=== PATIENT | male | born 1955 | race African-American/Black ===

== ENCOUNTER 2025-01-29 20:30 | Inpatient (IN) | payer MEDICARE, MEDICAID ==
[~2025-01-29] VITALS: Ht 167.6 cm; Wt 124.3 kg
[2025-01-29 20:30] VITALS: BP 146/75; PULSE 90; RESP 20; TEMP 36.6404
[2025-01-29 21:22] VITALS: BP 146/75; PULSE 90; RESP 20; TEMP 36.6; O2SAT 97
[2025-01-29] MEDS ORDERED: IPRATROPIUM/ALBUTEROL 0.5-3(2.5)MG/3ML NEB HHN PRN (22:00)
[2025-01-29] MEDS ORDERED: ACETAMINOPHEN 325MG TABLET PO PRN (22:00)
[2025-01-29] MEDS ORDERED: DEXTROSE 50% WATER 50ML SYRINGE IV PRN (22:00)
[2025-01-29] MEDS ORDERED: ONDANSETRON HCL 4MG/2ML INJ IV PRN (22:00)
[2025-01-29] MEDS: ATORVASTATIN CALCIUM 40MG TABLET PO SCH (22:23)
[2025-01-30] MEDS: BLOOD SUGAR DIAGNOSTIC STRIP TEST SCH (07:15)
[2025-01-30 08:00] VITALS: BP 141/68; PULSE 88; RESP 20; TEMP 36.5; O2SAT 98
[2025-01-30 08:49] LABS: BASOPHILS % 0.8 % (0.0-2.0); EOSINOPHILS % 0.6 % (0.0-5.0); HEMATOCRIT. 32.6 % (42.0-52.0); HEMOGLOBIN. 10.8 g/dL (14.0-18.0); LYMPHOCYTES % 11.9 % (20.0-50.0); MEAN PLATELET VOLUME 9.1 fl (7.4-10.4); MONOCYTES % 12.9 % (2.0-8.0); NEUTROPHILS % 73.8 % (40.0-76.0); PLATELET 225 x1000/uL (130-400); RED BLOOD CELL COUNT 3.40 mill/uL (4.7-6.1); RED CELL DISTRIBUTION WIDTH 15.1 % (11.6-14.6)
[2025-01-30] MEDS: INSULIN LISPRO 100 UNITS/ML SUBCUT SCH (09:00)
[2025-01-30] MEDS: FUROSEMIDE 40MG/4ML VIAL IVP SCH (09:22)
[2025-01-30 09:45] LABS: CREATININE 1.1 mg/dL (0.6-1.3)
[2025-01-30 09:46] LABS: UREA NITROGEN BLOOD 18 mg/dL (9-23)
[2025-01-30 09:47] LABS: ASPARTATE AMINOTRANSFERASE 15 IU/L (<34)
[2025-01-30 09:48] LABS: BILIRUBIN TOTAL 1.2 mg/dL (0.1-1.0); PROTEIN TOTAL 6.4 g/dL (6.0-8.3)
[2025-01-30] MEDS: ASPIRIN 81MG TABLET PO SCH (09:53)
[2025-01-30] MEDS: EMPAGLIFLOZIN 10MG TABLET PO SCH (09:53)
[2025-01-30] MEDS: SACUBITRIL/VALSARTAN 24MG/26MG TABLET PO SCH (09:53)
[2025-01-30] MEDS: SPIRONOLACTONE 25MG TABLET PO SCH (10:06)
[2025-01-30] MEDS: CLOPIDOGREL 75MG TABLET PO SCH (10:08)
[2025-01-30 20:00] VITALS: BP 111/75; PULSE 103; RESP 19; TEMP 36.3; O2SAT 95
[2025-01-31 06:03] LABS: HEMATOCRIT. 34.7 % (42.0-52.0); HEMOGLOBIN. 11.2 g/dL (14.0-18.0); MEAN PLATELET VOLUME 9.0 fl (7.4-10.4); PLATELET 222 x1000/uL (130-400); RED BLOOD CELL COUNT 3.60 mill/uL (4.7-6.1); RED CELL DISTRIBUTION WIDTH 15.5 % (11.6-14.6)
[2025-01-31 06:18] LABS: CREATININE 1.1 mg/dL (0.6-1.3); UREA NITROGEN BLOOD 11 mg/dL (9-23)
[2025-01-31 06:20] LABS: ASPARTATE AMINOTRANSFERASE 17 IU/L (<34); BILIRUBIN TOTAL 1.3 mg/dL (0.1-1.0); PROTEIN TOTAL 7.3 g/dL (6.0-8.3)
[2025-01-31 08:00] VITALS: BP 119/79; PULSE 102; RESP 21; TEMP 37.7; O2SAT 98
[2025-01-31 11:26] LABS: FOLIC ACID (FOLATE) SERUM > 20.00 ng/mL (>5.38)
[2025-01-31 11:27] LABS: VITAMIN B12 SERUM 374 pg/mL (211-911)
[2025-01-31] MEDS: ASCORBIC ACID 500 MG TABLET PO SCH (16:19)
[2025-01-31] MEDS: FERROUS SULFATE 325MG TABLET PO SCH (16:19)
[2025-01-31] MEDS: CYANOCOBALAMIN 1000MCG/ML VIAL IM SCH (16:19)
[2025-01-31 17:14] LABS: LYMPHOCYTES % MANUAL 8.0 % (20.0-50.0); MONOCYTES % MANUAL 14.0 % (2.0-8.0); NEUTROPHILS % MANUAL 78.0 % (45.0-75.0); PLATELET ESTIMATE NORMAL
[2025-01-31 17:39] LABS: CLARITY URINE CLEAR (CLEAR); COLOR URINE YELLOW (YELLOW); GLUCOSE URINE 3+ (NEGATIVE); KETONES URINE NEGATIVE (NEGATIVE); LEUKOCYTE ESTERASE URINE NEGATIVE (NEGATIVE); NITRITE URINE NEGATIVE (NEGATIVE); OCCULT BLOOD URINE NEGATIVE (NEGATIVE); PH URINE 6.0 (4.5-8.0); PROTEIN URINE TRACE (NEGATIVE); SPECIFIC GRAVITY URINE 1.026 (1.005-1.030); UROBILINOGEN URINE 4.0 E.U./dL (0.2-1.0)
[2025-01-31 18:11] LABS: BACTERIA URINE NONE SEEN; RBC URINE NONE SEEN /hpf (0-2); SQUAMOUS EPITHELIAL CELL URINE NONE SEEN /lpf (RARE/1+); WBC URINE NONE SEEN /hpf (0-2); YEAST URINE NONE SEEN
[2025-01-31] MEDS: ACETAMINOPHEN 325MG TABLET PO PRN (18:35)
[2025-01-31 20:00] VITALS: BP 122/78; PULSE 89; RESP 14; TEMP 36.8; O2SAT 95
[2025-01-31] MEDS: TRAMADOL 50MG TABLET PO PRN (21:38)
[2025-02-01] VITALS: BP 129/79; PULSE 89; RESP 14; TEMP 36.9; O2SAT 97
[2025-02-01 08:00] VITALS: BP 95/53; PULSE 96; RESP 17; TEMP 37.9; O2SAT 96
[2025-02-01 12:23] LABS: CLARITY URINE CLEAR (CLEAR); COLOR URINE DARK YELLOW (YELLOW); GLUCOSE URINE 3+ (NEGATIVE); KETONES URINE TRACE (NEGATIVE); LEUKOCYTE ESTERASE URINE NEGATIVE (NEGATIVE); NITRITE URINE NEGATIVE (NEGATIVE); OCCULT BLOOD URINE 1+ (NEGATIVE); PH URINE 5.0 (4.5-8.0); PROTEIN URINE 1+ (NEGATIVE); SPECIFIC GRAVITY URINE 1.034 (1.005-1.030); UROBILINOGEN URINE 1.0 E.U./dL (0.2-1.0)
[2025-02-01 12:34] LABS: BACTERIA URINE TRACE; SQUAMOUS EPITHELIAL CELL URINE RARE /lpf (RARE/1+); WBC URINE 0-2 /hpf (0-2); WHITE BLOOD CELL CASTS URINE 0-5 /lpf
[2025-02-01] MEDS: SODIUM CHLORIDE 0.9% 1,000 ML IV SCH (12:40)
[2025-02-01] MEDS: NA PHOS,M-B/NA PHOS,DI-BA ENEMA 118ML PR SCH (13:00)
[2025-02-01 13:04] LABS: C REACTIVE PROTEIN HIGH SENS 206.04 mg/l (<1.00)
[2025-02-01 14:52] LABS: HEMATOCRIT. 33.6 % (42.0-52.0); HEMOGLOBIN. 10.8 g/dL (14.0-18.0); MEAN PLATELET VOLUME 9.1 fl (7.4-10.4); PLATELET 262 x1000/uL (130-400); RED BLOOD CELL COUNT 3.54 mill/uL (4.7-6.1); RED CELL DISTRIBUTION WIDTH 15.0 % (11.6-14.6)
[2025-02-01] MEDS: LACTULOSE 20G/30ML UDC PO SCH (15:18)
[2025-02-01 16:12] LABS: EOSINOPHILS % MANUAL 1.0 % (0.0-5.0); LYMPHOCYTES % MANUAL 11.0 % (20.0-50.0); MONOCYTES % MANUAL 16.0 % (2.0-8.0); NEUTROPHILS % MANUAL 72.0 % (45.0-75.0); PLATELET ESTIMATE NORMAL
[2025-02-01] MEDS: CEFEPIME 1GM/50ML 50 ML IV SCH (18:36)
[2025-02-01] MEDS: VANCOMYCIN 2GM PMX (XELLIA) 400 ML IV NR (19:04)
[2025-02-01 20:00] VITALS: BP 102/63; PULSE 97; RESP 18; TEMP 36.3; O2SAT 96
[2025-02-02 08:00] VITALS: BP 106/56; PULSE 93; RESP 18; TEMP 36.1; O2SAT 97
[2025-02-02] MEDS ORDERED: NA PHOS,M-B/NA PHOS,DI-BA ENEMA 118ML PR PRN (09:00)
[2025-02-02] MEDS: CHOLECALCIFEROL (D3) 1000 UNIT TABLET PO SCH (13:37)
[2025-02-02 13:54] LABS: HEMATOCRIT. 35.4 % (42.0-52.0); HEMOGLOBIN. 11.5 g/dL (14.0-18.0); MEAN PLATELET VOLUME 8.3 fl (7.4-10.4); PLATELET 337 x1000/uL (130-400); RED BLOOD CELL COUNT 3.75 mill/uL (4.7-6.1); RED CELL DISTRIBUTION WIDTH 15.7 % (11.6-14.6)
[2025-02-02 13:55] LABS: CREATININE 1.2 mg/dL (0.6-1.3); UREA NITROGEN BLOOD 21 mg/dL (9-23)
[2025-02-02 13:56] LABS: LACTATE DEHYDROGENASE 170 IU/L (120-246)
[2025-02-02] MEDS: CEFEPIME 2GM/100ML 100 ML IV SCH (14:00)
[2025-02-02] MEDS ORDERED: METHYLPREDNISOLONE ACETATE 40MG/ML VIAL IM SCH (14:00)
[2025-02-02] MEDS ORDERED: LIDOCAINE HCL/EPINEPHRINE 1%-EPI 1:100,000 10ML VIAL INFIL SCH (15:00)
[2025-02-02] MEDS: VANCOMYCIN 750MG PREMIX 150 ML IV SCH (15:10)
[2025-02-02 20:00] VITALS: BP 112/71; PULSE 93; RESP 20; TEMP 36.4; O2SAT 97
[2025-02-02 21:02] LABS: LYMPHOCYTES % MANUAL 8.0 % (20.0-50.0); MONOCYTES % MANUAL 15.0 % (2.0-8.0); NEUTROPHILS % MANUAL 77.0 % (45.0-75.0); PLATELET ESTIMATE NORMAL
[2025-02-02] MEDS: PREGABALIN 75MG CAPSULE PO SCH (21:14)
[2025-02-02] MEDS: BUPROPION HCL 75MG TABLET PO SCH (21:14)
[2025-02-02] MEDS: HYDROXYCHLOROQUINE SULFATE 200MG TABLET PO SCH (21:14)
[2025-02-02] MEDS: PREDNISONE 20MG TABLET PO SCH (21:14)
[2025-02-02] MEDS: DICLOFENAC SODIUM 75MG DR TABLET PO SCH (21:14)
[2025-02-03 08:00] VITALS: BP 102/60; PULSE 83; RESP 19; TEMP 36.3; O2SAT 98
[2025-02-03 08:06] LABS: HEMATOCRIT. 36.4 % (42.0-52.0); HEMOGLOBIN. 12.0 g/dL (14.0-18.0); MEAN PLATELET VOLUME 8.3 fl (7.4-10.4); PLATELET 384 x1000/uL (130-400); RED BLOOD CELL COUNT 3.85 mill/uL (4.7-6.1); RED CELL DISTRIBUTION WIDTH 15.5 % (11.6-14.6)
[2025-02-03 08:23] LABS: CREATININE 1.3 mg/dL (0.6-1.3); UREA NITROGEN BLOOD 27 mg/dL (9-23)
[2025-02-03 09:48] LABS: ERYTHROCYTE SEDIMENTATION RATE 91 mm/hr (0-20)
[2025-02-03 16:40] LABS: LYMPHOCYTES % MANUAL 3.0 % (20.0-50.0); MONOCYTES % MANUAL 4.0 % (2.0-8.0); NEUTROPHILS % MANUAL 93.0 % (45.0-75.0)
[2025-02-03 16:41] LABS: PLATELET ESTIMATE NORMAL
[2025-02-03 20:00] VITALS: BP 101/55; PULSE 78; RESP 18; TEMP 36.4; O2SAT 96
[2025-02-03] MEDS: ATORVASTATIN CALCIUM 40MG TABLET PO SCH (21:35)
[2025-02-04 08:00] VITALS: BP 97/62; PULSE 87; RESP 18; TEMP 36.5; O2SAT 95
[2025-02-04 10:34] LABS: HEMATOCRIT. 35.1 % (42.0-52.0); HEMOGLOBIN. 11.6 g/dL (14.0-18.0); MEAN PLATELET VOLUME 8.3 fl (7.4-10.4); PLATELET 420 x1000/uL (130-400); RED BLOOD CELL COUNT 3.76 mill/uL (4.7-6.1); RED CELL DISTRIBUTION WIDTH 15.6 % (11.6-14.6)
[2025-02-04 10:47] LABS: UREA NITROGEN BLOOD 53.0 mg/dL (9-23)
[2025-02-04 10:53] LABS: CREATININE 1.8 mg/dL (0.6-1.3)
[2025-02-04 10:57] LABS: EOSINOPHILS % MANUAL 1.0 % (0.0-5.0); LYMPHOCYTES % MANUAL 2.0 % (20.0-50.0); MONOCYTES % MANUAL 8.0 % (2.0-8.0); NEUTROPHILS % MANUAL 89.0 % (45.0-75.0); PLATELET ESTIMATE INCREASED
[2025-02-04 20:00] VITALS: BP 104/60; PULSE 91; RESP 18; TEMP 36.3; O2SAT 95
[2025-02-05 07:06] LABS: HEMATOCRIT. 35.4 % (42.0-52.0); HEMOGLOBIN. 11.7 g/dL (14.0-18.0); MEAN PLATELET VOLUME 8.4 fl (7.4-10.4); PLATELET 431 x1000/uL (130-400); RED BLOOD CELL COUNT 3.76 mill/uL (4.7-6.1); RED CELL DISTRIBUTION WIDTH 15.7 % (11.6-14.6)
[2025-02-05 07:17] LABS: CREATININE 1.5 mg/dL (0.6-1.3); UREA NITROGEN BLOOD 48.0 mg/dL (9-23)
[2025-02-05 08:00] VITALS: BP 107/71; PULSE 81; RESP 18; TEMP 36.2; O2SAT 98
[2025-02-05] MEDS: VANCOMYCIN 1GM PMX (XELLIA) 200 ML IV SCH (09:00)
[2025-02-05] MEDS: FUROSEMIDE 40MG/4ML VIAL IVP SCH (10:44)
[2025-02-05 17:07] LABS: ANGIOTENSION CONVERTING ENZYME 20 U/L (14-82); ANTI-CARDIOLIPIN AB IGM < 9 MPL U/mL (0-12)
[2025-02-05 20:00] VITALS: BP 104/66; PULSE 74; RESP 20; TEMP 36.3; O2SAT 100
[2025-02-06] VITALS: BP 115/73; PULSE 84; RESP 19; TEMP 36.2; O2SAT 97
[2025-02-06 08:00] VITALS: BP 115/62; PULSE 83; RESP 18; TEMP 36.6; O2SAT 97
[2025-02-06 08:22] LABS: BAND% 5.0 % (1.0-6.0); LYMPHOCYTES % MANUAL 4.0 % (20.0-50.0); MONOCYTES % MANUAL 8.0 % (2.0-8.0); NEUTROPHILS % MANUAL 83.0 % (45.0-75.0); PLATELET ESTIMATE INCREASED
[2025-02-06 17:07] LABS: ATYPICAL P-ANCA <1:20 titer (Neg:<1:20); CYTOPLASMIC C-ANCA <1:20 titer (Neg:<1:20); PERINUCLEAR P-ANCA <1:20 titer (Neg:<1:20)
[2025-02-06 20:00] VITALS: BP 112/63; PULSE 83; RESP 18; TEMP 36.3; O2SAT 100
[2025-02-07 08:00] VITALS: BP 102/64; PULSE 97; RESP 18; TEMP 36.4; O2SAT 96
[2025-02-07 19:07] LABS: ALDOLASE 7.1 U/L (3.3-10.3)
[2025-02-07 20:00] VITALS: BP 126/40; PULSE 86; RESP 18; TEMP 37.1; O2SAT 99
[2025-02-08 08:00] VITALS: BP 103/53; PULSE 84; RESP 18; TEMP 36.6; O2SAT 100
[2025-02-08 20:00] VITALS: BP 123/67; PULSE 87; RESP 18; TEMP 36.1; O2SAT 98
[2025-02-08] MEDS: PREDNISONE 10MG TABLET PO SCH (21:10)
[2025-02-09 08:00] VITALS: BP 122/74; PULSE 77; RESP 19; TEMP 36.7; O2SAT 97
[2025-02-09 08:30] LABS: CREATINE KINASE MB FRACTION 0.5 ng/mL (0.5-3.6)
[2025-02-09 08:31] LABS: CREATININE 1.2 mg/dL (0.6-1.3); UREA NITROGEN BLOOD 31 mg/dL (9-23)
[2025-02-09 13:11] LABS: ANA IFA Negative (.)
[2025-02-09] MEDS: SODIUM POLYSTYRENE SULFONATE 15 G/60 ML BOT PO NR (13:49)
[2025-02-09 20:00] VITALS: BP 116/67; PULSE 86; RESP 19; TEMP 35.6; O2SAT 96
[2025-02-09] MEDS: FUROSEMIDE 40MG/4ML VIAL IVP SCH (21:29)
[2025-02-10] MEDS: SODIUM ZIRCONIUM CYCLOSILICATE 10GM/PACKET PO NR (07:00)
[2025-02-10 08:29] LABS: HEMATOCRIT. 40.2 % (42.0-52.0); HEMOGLOBIN. 13.2 g/dL (14.0-18.0); MEAN PLATELET VOLUME 8.4 fl (7.4-10.4); PLATELET 479 x1000/uL (130-400); RED BLOOD CELL COUNT 4.27 mill/uL (4.7-6.1); RED CELL DISTRIBUTION WIDTH 16.1 % (11.6-14.6)
[2025-02-10 08:40] LABS: CREATININE 1.1 mg/dL (0.6-1.3); UREA NITROGEN BLOOD 26 mg/dL (9-23)
[2025-02-10 18:34] LABS: LYMPHOCYTES % MANUAL 16.0 % (20.0-50.0); MONOCYTES % MANUAL 7.0 % (2.0-8.0); NEUTROPHILS % MANUAL 77.0 % (45.0-75.0); PLATELET ESTIMATE NORMAL
[2025-02-10 20:00] VITALS: BP 117/74; PULSE 84; RESP 18; TEMP 36.3; O2SAT 100
[2025-02-11 07:11] LABS: CREATININE 1.2 mg/dL (0.6-1.3); UREA NITROGEN BLOOD 32 mg/dL (9-23)
[2025-02-11 07:19] LABS: BASOPHILS % 0.1 % (0.0-2.0); EOSINOPHILS % 0.1 % (0.0-5.0); HEMATOCRIT. 41.4 % (42.0-52.0); HEMOGLOBIN. 13.7 g/dL (14.0-18.0); LYMPHOCYTES % 7.5 % (20.0-50.0); MEAN PLATELET VOLUME 8.4 fl (7.4-10.4); MONOCYTES % 8.0 % (2.0-8.0); NEUTROPHILS % 84.3 % (40.0-76.0); PLATELET 469 x1000/uL (130-400); RED BLOOD CELL COUNT 4.44 mill/uL (4.7-6.1); RED CELL DISTRIBUTION WIDTH 15.8 % (11.6-14.6)
[2025-02-11 08:00] VITALS: BP 105/68; PULSE 86; RESP 18; TEMP 36.7; O2SAT 98
[2025-02-11 20:00] VITALS: BP 116/70; PULSE 84; RESP 19; TEMP 35.7; O2SAT 100
[2025-02-12 08:00] VITALS: BP 124/71; PULSE 86; RESP 18; TEMP 36.5; O2SAT 98
[2025-02-12 20:00] VITALS: BP 130/80; PULSE 98; RESP 19; TEMP 36.7; O2SAT 99
[2025-02-13 08:10] VITALS: BP 138/82; PULSE 99; RESP 18; TEMP 36.7; O2SAT 100
[2025-02-13] MEDS: FOLIC ACID 1MG TABLET PO SCH (18:02)
[2025-02-13 20:00] VITALS: BP 121/87; PULSE 88; RESP 17; TEMP 36.5; O2SAT 94
[2025-02-14 08:00] VITALS: BP 125/74; PULSE 87; RESP 18; TEMP 36.2; O2SAT 98
[2025-02-14] MEDS: METHOTREXATE SODIUM 2 . 5MG TABLET PO SCH ×3 (12:24→21:17)
[2025-02-14 20:00] VITALS: BP 130/82; PULSE 86; RESP 20; TEMP 36.5; O2SAT 99
[2025-02-15 08:00] VITALS: BP 128/74; PULSE 95; RESP 19; TEMP 36.5; O2SAT 95
[2025-02-15 20:00] VITALS: BP 130/75; PULSE 88; RESP 18; TEMP 36.2; O2SAT 97
[2025-02-16 08:00] VITALS: BP 124/80; PULSE 87; RESP 18; TEMP 36.1; O2SAT 97
[2025-02-16 08:11] LABS: ANTI-MYELOPEROXIDASE AB < 0.2 units (0.0-0.9); ANTI-PROTEINASE 3 ABS < 0.2 units (0.0-0.9)
[2025-02-16 11:00] LABS: BASOPHILS % 0.1 % (0.0-2.0); EOSINOPHILS % 0.0 % (0.0-5.0); HEMATOCRIT. 39.5 % (42.0-52.0); HEMOGLOBIN. 12.9 g/dL (14.0-18.0); LYMPHOCYTES % 7.1 % (20.0-50.0); MEAN PLATELET VOLUME 9.0 fl (7.4-10.4); MONOCYTES % 10.4 % (2.0-8.0); NEUTROPHILS % 82.4 % (40.0-76.0); PLATELET 253 x1000/uL (130-400); RED BLOOD CELL COUNT 4.24 mill/uL (4.7-6.1); RED CELL DISTRIBUTION WIDTH 16.0 % (11.6-14.6)
[2025-02-16 11:23] LABS: CREATININE 1.3 mg/dL (0.6-1.3); UREA NITROGEN BLOOD 37 mg/dL (9-23)
[2025-02-16 20:00] VITALS: BP 140/67; PULSE 85; RESP 20; TEMP 36.3; O2SAT 98
[2025-02-17 08:00] VITALS: BP 126/73; PULSE 98; RESP 20; TEMP 36.7
[2025-02-17 20:00] VITALS: BP 132/74; PULSE 88; RESP 20; TEMP 36.6; O2SAT 98
[2025-02-18 08:00] VITALS: BP 115/75; PULSE 89; RESP 18; TEMP 36.7; O2SAT 97
[2025-02-18 20:00] VITALS: BP 116/86; PULSE 89; RESP 18; TEMP 36.1; O2SAT 99
[2025-02-19 09:43] VITALS: BP 121/81; PULSE 88; RESP 18; TEMP 97.7
[2025-02-19 10:00] VITALS: BP 121/81; PULSE 86; RESP 18; TEMP 36.6; O2SAT 100
== END 2025-02-19 10:45 | disposition home or self-care (01) | DRG 56 ==
PROVIDERS: ADMIT Physical Medicine & Rehabilitation Spinal Cord Injury Medicine; ATTEND Hospitalist
PROC: 3E0U33Z Introduction of Anti-inflammatory into Joints, Percutaneous Approach (ICD-10-PCS; principal; 2025-02-02)
PROC: 3E0U33Z Introduction of Anti-inflammatory into Joints, Percutaneous Approach (ICD-10-PCS; 2025-02-02)
PROC: 3E0U33Z Introduction of Anti-inflammatory into Joints, Percutaneous Approach (ICD-10-PCS; 2025-02-02)
PROC: 3E0U33Z Introduction of Anti-inflammatory into Joints, Percutaneous Approach (ICD-10-PCS; 2025-02-02)
PROC: 3E0U3BZ Introduction of Anesthetic Agent into Joints, Percutaneous Approach (ICD-10-PCS; 2025-02-02)
PROC: 3E0U3BZ Introduction of Anesthetic Agent into Joints, Percutaneous Approach (ICD-10-PCS; 2025-02-02)
PROC: 3E0U3BZ Introduction of Anesthetic Agent into Joints, Percutaneous Approach (ICD-10-PCS; 2025-02-02)
PROC: 3E0U3BZ Introduction of Anesthetic Agent into Joints, Percutaneous Approach (ICD-10-PCS; 2025-02-02)
DX: G81.91 Hemiplegia, unspecified affecting right dominant side (principal); A41.9 Sepsis, unspecified organism; G92.9 Unspecified toxic encephalopathy; M62.82 Rhabdomyolysis; I50.20 Unspecified systolic (congestive) heart failure; I11.0 Hypertensive heart disease with heart failure; R13.10 Dysphagia, unspecified; N17.9 Acute kidney failure, unspecified; Z68.41 Body mass index [BMI] 40.0-44.9, adult; F01.53 Vascular dementia, unspecified severity, with mood disturbance; E11.9 Type 2 diabetes mellitus without complications; D50.9 Iron deficiency anemia, unspecified; I08.1 Rheumatic disorders of both mitral and tricuspid valves; M06.9 Rheumatoid arthritis, unspecified; I42.9 Cardiomyopathy, unspecified; R47.01 Aphasia; E66.01 Morbid (severe) obesity due to excess calories; M10.9 Gout, unspecified; R53.81 Other malaise; E55.9 Vitamin D deficiency, unspecified; E87.5 Hyperkalemia; M13.0 Polyarthritis, unspecified; M79.7 Fibromyalgia; G89.29 Other chronic pain; M62.81 Muscle weakness (generalized); R70.0 Elevated erythrocyte sedimentation rate; R74.8 Abnormal levels of other serum enzymes; R79.82 Elevated C-reactive protein (CRP); Z95.810 Presence of automatic (implantable) cardiac defibrillator; Z79.899 Other long term (current) drug therapy; Z79.82 Long term (current) use of aspirin; R47.1 Dysarthria and anarthria; R29.810 Facial weakness
CPT/HCPCS: 36415; 71045; 73130; 73600; 74018; 80048; 80053; 80202; 81003; 82085; 82140; 82164; 82306; 82550; 82553; 82607; 82728; 82746; 82962; 83036; 83520; 83540; 83550; 83615; 83735; 83880; 84134; 84145; 84443; 84550; 85025; 85651; 86141; 86147; 86235; 86256; 86431; 86705; 92523; 92610; 93005; 97110; 97112; 97116; 97162; 97166; 97530; 97535; 97542; A4606; J0692; J1030; J1815; J1938; J3373; J3420; J7030; J7512; J8610; A5200